=== PATIENT | female | born 1995 | race Caucasian/White ===

== ENCOUNTER 2020-04-01 19:09 | Emergency (ER) | payer BC, SELFPAY ==
--- NOTE | 2020-04-01 19:25 | HMH.EDUTC ---
[facility] [place] Clinical Impression: Viral syndrome Disposition: Home, Self-Care Condition on Discharge: Good Instructions: Preventing the Spread of Coronavirus Discharge Instructions Additional Instructions: Drink plenty of fluids. Take tylenol for pain or fever. Return if you begin to have difficulty breathing. Follow up with your regular doctor. GO TO THE ER FOR ANY WORSENING SYMPTOMS Referrals: PCP,No [Primary Care Provider] - Time of Disposition: 19:32 Medical Decision Making - Medical Records Medical records reviewed: No: I reviewed the patient's medical records. - Bijan Inquiry Pt receiving controlled substance: No Orders (Tests/Meds): ORDERS Category Date Time Status Covid-19 Nasal PCR Sendout P&C Stat Lab 04/01/20 19:14 Ordered [facility] [place] HPI - General Stated complaint: covid test,Sore throat,cough,weakness Time Seen by Provider: 04/01/20 19:27 - History of Present Illness Provider Complaint: She states that since last night she has had a cough, chest congestion, chills and body aches. Her currently has covid-19. - Related Data Home Medications Medication Instructions Recorded Confirmed No Known Home Medications 12/14/18 12/14/18 Allergies Allergy/AdvReac Type Severity Reaction Status Date / Time No Known Allergies Allergy Verified 12/14/18 16:04 [facility] History - Hepatitis A Screen Attestation statement:: This patient has been screened for Hepatitis A risk factors. I have reviewed the patient's past medical history: Yes Medical History: Denies:: Diabetes Mellitus Type 1, Diabetes Mellitus Type 2, Hypertension Other Surgeries: Yes: No Previous Surgery Amputation: No Fractures: No - Social History Smoking Status: Current every day smoker Tobacco Type: cigarettes Alcohol Intake: current Alcohol Intake Frequency:: holidays/special occasions only Substance Use Type: denies use Occupational Status: employed Housing: house Household Members: family Family Hx:: Cancer ROS Obtained: Yes All systems reviewed & no additional complaints - Constitutional Constitutional: Reports system reviewed and no additional complaints, except as docu - Eyes Eyes: Reports system reviewed and no additional complaints, except as docu - ENT Ears, Nose, Mouth, and Throat: Reports system reviewed and no additional complaints, except as docu - Cardiovascular Cardiovascular: Reports system reviewed and no additional complaints, except as docu - Respiratory Respiratory: Yes system reviewed and no additional complaints, except as docu - Gastrointestinal Gastrointestingal: Reports: system reviewed and no additional complaints, except as docu Physical Exam - General General appearance: alert, in no apparent distress - Head Head exam: atraumatic, normocephalic, normal inspection - Eye Eye exam: Present: normal appearance, PERRL, EOMI - ENT ENT exam: Present: mucous membranes moist, normal external ear exam - Expanded ENT Exam TM/Canal exam: Bilateral TM: erythema Mouth exam: Present: normal external inspection Teeth exam: Present: normal inspection Throat exam: Present: tonsillar erythema. Absent: tonsillomegaly, tonsillar exudate, R peritonsillar mass, L peritonsillar mass - Neck Neck exam: Present: normal inspection, full ROM, trachea midline. Absent: meningismus, lymphadenopathy - Chest Chest inspection: Present: normal inspection, symmetric chest wall rise. Absent: tenderness - Respiratory Respiratory exam: Present: normal lung sounds bilaterally. Absent: respiratory distress - Cardiovascular Cardiovascular exam: Present: regular rate, normal rhythm. Absent: JVD - Abdominal Exam Abdominal exam: Present: soft, normal bowel sounds. Absent: distention, tenderness, guarding - Extremities Exam Extremities exam: Present: normal inspection, full ROM, normal capillary refill. Absent: calf tenderness - Back Exam Back exam: Presen
[2020-04-01 19:26] VITALS: BP 116/90; PULSE 75; RESP 18; TEMP 36.7; O2SAT 98; BMI 33.6
[2020-04-01 19:45] VITALS: BP 116/90; PULSE 75; RESP 18; TEMP 36.7; O2SAT 98
--- NOTE | 2020-04-02 09:57 | PC.NURSE ---
ATTEMPTED TO CALL PATIENT TO NOTIFY OF POSITIVE COVID TEST WITH NO ANSWER. WILL ATTEMPT TO CALL BACK
--- NOTE | 2020-04-02 09:59 | PC.NURSE ---
ATTEMPTED TO CALL PT ABOUT COVID RESULTS. NO ANSWER AT THIS TIME. WILL TRY AGAIN LATER
--- NOTE | 2020-04-02 13:41 | PC.NURSE ---
ATTEMPTED AGAIN TO CALL PATIENT TO NOTIFY OF POSITIVE COVID TEST. PATIENT DID NOT ANSWER PHONE. WILL ATTEMPT TO CALL AGAIN LATER.
--- NOTE | 2020-04-02 13:57 | PC.NURSE ---
PT NOTIFIED OF POSITIVE COVID RESULT
== END 2020-04-01 19:46 | disposition home or self-care (01) ==
PROVIDERS: Emergency Provider Nurse Practitioner Family
DX: U07.1 COVID-19 (principal); B34.9 Viral infection, unspecified; F17.210 Nicotine dependence, cigarettes, uncomplicated
CPT/HCPCS: 99201; U0003

== ENCOUNTER 2021-06-26 10:02 | Emergency (ER) | payer BC, SELFPAY ==
[2021-06-26 11:00] VITALS: BP 113/67; PULSE 88; RESP 18; TEMP 37.4; O2SAT 97; BMI 30.9
[2021-06-26 11:15] LABS: UTC Strep Screen (Rapid) Positive (Negative)
--- NOTE | 2021-06-26 11:43 | HMH.EDUTC ---
[facility] [place] Clinical Impression: Strep throat Disposition: Home, Self-Care Condition on Discharge: Good Instructions: DI for Strep Throat, Strep Throat Additional Instructions: *Monitor Temp, Over the counter Motrin or Tylenol as directed/as needed Tylenol every 4 hours and Motrin every 6 hours (as long as your family doctor has told you that you can take it) for fever or pain. and straight to ER if unable to lower temp less than 101.0 after medication given *Warm salt water gargles may help to soothe the throat *Throat Lozenges *Warm fluids like tea with honey may help to soothe the throat *Sleep elevated *Humidifier/Vaporizer *If you did not take Penicillin shot or was unable to, start taking antibiotic immediately and make sure that you take it for the FULL length of time although you should start to feel better in 24-48 hours *change toothbrush and toothpaste 24-48 hours after starting to take antibiotics so you do not reinfect yourself Monitor Temp. Tylenol and/or Ibuprofen as needed. ER if fever is no less than 101 despite alternating Tylenol and Ibuprofen * Encourage fluids, water, Gatorade, powerade, pedialyte if infant/toddler/or child *Cold fluids, popsicles and ice cream may feel good on his throat Follow up IMMEDIATELY for new or worsening symptoms or no Noticeable improvement over the next 48-72 hours. 911 for difficulty breathing or swallowing Prescriptions: methylPREDNISolone [Medrol 4mg tab] 4 mg PO DIRECTED #21 tab Transmission Status: Pending to [facility] Penicillin V Potassium 500 mg PO BID 10 Days #20 tab Transmission Status: P[facility] to [facility] Referrals: Gissel Travis [Primary Care Provider] - As needed Forms: Work/School Release Time of Disposition: 11:49 Medical Decision Making - Bijan Inquiry Pt receiving controlled substance: No Bijan was queried for this patient: No Vital Signs: 06/26/21 11:00 Temperature 99.3 F Temperature Source Oral Pulse Rate [Right Brachial] 88 Respiratory Rate 18 Blood Pressure [Right Arm] 113/67 Blood Pressure Mean [Right Arm] 82 Blood Pressure Source [Right Arm] Automatic Cuff Blood Pressure Position [Right Arm] Sitting 02 Sat by Pulse Oximetry 97 Oxygen Delivery Method Room Air - Lab Data Lab results reviewed: Yes: I reviewed the patient's lab results. Lab Results 06/26/21 11:10: Strep Scn Rapid Clinic Positive A [facility] [place] - General Stated complaint: sore throat, fever Time Seen by Provider: 06/26/21 11:43 Mode of Arrival: Ambulatory Source of Information: Patient Limitations: No Limitations Description of Symptoms (Recalled from Triage Doc. by RN): PATIENT C/O SORE THROAT AND FEVER THAT STARTED YESTERDAY HEENT Symptoms (Recalled from RN notes): Yes Resp Symptoms (Recalled from RN notes): No Skin Symptoms (Recalled from RN notes): No MS Symptoms (Recalled from RN notes): No Functional Status (Recalled from RN notes): WNL - History of Present Illness Provider Complaint: Patient states that she has been having fever and sore throat since yesterday States that she noticed she was having white patchy stuff on her throat like she gets when she has strep throat so she came in - Related Data Previous Rx's Medication Instructions Recorded Penicillin V Potassium 500 mg PO BID 10 Days #20 tab 06/26/21 methylPREDNISolone [Medrol 4mg 4 mg PO DIRECTED #21 tab 06/26/21 tab] Allergies Allergy/AdvReac Type Severity Reaction Status Date / Time No Known Allergies Allergy Verified 12/14/18 16:04 - Worker's Comp Is this a Worker's Comp case?: No [facility] History - Hepatitis A Screen Drug use history?: No High risk sexual behaviors?: No History of sexually transmitted infection?: No Currently employed?: No Childcare worker?: No Do you have indoor plumbing?: Yes Do you have electricity?: Yes Attestation statement:: This patient has been screened for Hepatitis A risk factors. I have
[2021-06-26 11:55] VITALS: BP 113/67; PULSE 88; RESP 18; TEMP 37.4; O2SAT 97
== END 2021-06-26 12:01 | disposition home or self-care (01) ==
PROVIDERS: Emergency Provider Nurse Practitioner; PCP Family Medicine
DX: J02.0 Streptococcal pharyngitis (principal)
CPT/HCPCS: 87880; 99212; G0463

== ENCOUNTER 2021-08-09 09:11 | Emergency (ER) | payer BC, SELFPAY ==
[2021-08-09 09:47] VITALS: BP 189/89; PULSE 98; RESP 20; TEMP 37.2; O2SAT 98; BMI 31.8
[2021-08-09 10:08] LABS: Strep Scrn Group A (Rapid) Positive (Negative)
--- NOTE | 2021-08-09 10:28 | HMH.EDUTC ---
[facility] [place] Disposition Clinical Impression: Strep throat Disposition: Home, Self-Care Condition on Discharge: Good Instructions: Strep Throat, DI for Strep Throat Additional Instructions: Drink plenty of fluids. Take tylenol or ibuprofen for pain or fever. Take the medications as directed. Follow up with your regular doctor. GO TO THE ER FOR ANY WORSENING SYMPTOMS Don't start the oral steroids until tomorrow, since you had the shot here today. Prescriptions: Ondansetron [Zofran 4mg ODT] 4 mg PO Q8HP PRN #9 tab PRN Reason: Nausea Transmission Status: Received by [facility] Amoxicillin/Potassium Clav [Amox-Clav 875-125 mg Tablet] 1 tab PO BID #20 tab Transmission Status: Received by [facility] methylPREDNISolone [Medrol] 4 mg PO DIRECTED 6 Days #21 packet Transmission Status: Received by [facility] Referrals: Gissel Travis [Primary Care Provider] - Forms: Work/School Release Time of Disposition: 10:52 Medical Decision Making - Medical Records Medical records reviewed: No: I reviewed the patient's medical records. - Bijan Inquiry Pt receiving controlled substance: No Vital Signs: 08/09/21 09:47 08/09/21 10:54 Temperature 98.9 F 98.9 F Temperature Source Oral Pulse Rate 98 H Pulse Rate [Left] 98 H Respiratory Rate 20 20 Blood Pressure 189/89 H Blood Pressure [Right Arm] 189/89 H Blood Pressure Mean [Right Arm] 122 02 Sat by Pulse Oximetry 98 - Lab Data Lab results reviewed: Yes: I reviewed the patient's lab results. Lab Results 08/09/21 09:51: Group A Strep Rapid Positive A Orders (Tests/Meds): ED MEDICATIONS Discontinued Medications Generic Name Dose Route Start Last Admin Trade Name Freq PRN Reason Stop Dose Admin Ceftriaxone Sodium 1 gm 08/09/21 10:33 08/09/21 10:45 Ceftriaxone 1gm Vial IM 08/09/21 10:34 1 gm ONCE ONE Administration Lidocaine HCl 0 ml 08/09/21 10:33 08/09/21 10:45 Lidocaine 1% 5ml Pf Vial IM 08/09/21 10:34 2 ml ONCE ONE Administration Methylprednisolone Sodium Succinate 125 mg 08/09/21 10:33 08/09/21 10:45 Methylprednisolone Sod Succ 125mg Vial IM 08/09/21 10:34 125 mg ONCE ONE Administration [facility] [place] HPI - General Stated complaint: sore throat,cough,body aches Time Seen by Provider: 08/09/21 10:28 Mode of Arrival: Ambulatory Source of Information: Patient Limitations: No Limitations Description of Symptoms (Recalled from Triage Doc. by RN): pt c/o a sore throat and congestion x2 days. pt also states she thinks she may be . HEENT Symptoms (Recalled from RN notes): Yes Resp Symptoms (Recalled from RN notes): No Skin Symptoms (Recalled from RN notes): No MS Symptoms (Recalled from RN notes): No Functional Status (Recalled from RN notes): wnl - History of Present Illness Provider Complaint: She states that she has had a sore throat for the past 2 days. She has been trying to get , but her period is not late and she does not think she is at this time. - Related Data Previous Rx's Medication Instructions Recorded Penicillin V Potassium 500 mg PO BID 10 Days #20 tab 06/26/21 methylPREDNISolone [Medrol 4mg 4 mg PO DIRECTED #21 tab 06/26/21 tab] Amoxicillin/Potassium Clav 1 tab PO BID #20 tab 08/09/21 [Amox-Clav 875-125 mg Tablet] Ondansetron [Zofran 4mg ODT] 4 mg PO Q8HP PRN #9 tab 08/09/21 methylPREDNISolone [Medrol] 4 mg PO DIRECTED 6 Days #21 08/09/21 packet Allergies Allergy/AdvReac Type Severity Reaction Status Date / Time No Known Allergies Allergy Verified 12/14/18 16:04 - Worker's Comp Is this a Worker's Comp case?: No [facility] History - Hepatitis A Screen Drug use history?: No High risk sexual behaviors?: No History of sexually transmitted infection?: No Currently employed?: No Childcare worker?: No Do you have indoor plumbing?: Yes Do you have electricity?: Yes Attestation sta
[2021-08-09 10:54] VITALS: BP 189/89; PULSE 98; RESP 20; TEMP 37.2
== END 2021-08-09 10:57 | disposition home or self-care (01) ==
PROVIDERS: Emergency Provider Nurse Practitioner Family; PCP Family Medicine
DX: J02.0 Streptococcal pharyngitis (principal)
CPT/HCPCS: 87430; 96372; 99212; G0463; J0696

== ENCOUNTER 2022-02-09 10:08 | Outpatient (CLI) | payer BC, SELFPAY ==
[2022-02-09 10:38] VITALS: BP 115/72; PULSE 108; RESP 17; TEMP 36.6; O2SAT 98; BMI 36.1
[2022-02-09 11:13] VITALS: BMI 36.1
[2022-02-09 11:20] LABS: Coronavirus 19, PCR Not Detected (NotDetected); Influenza A, PCR Not Detected (NotDetected); Influenza B, PCR Not Detected (NotDetected)
[2022-02-09 11:24] LABS: Basophils % 0.2 % (0.1-2.0); Eosinophils % 0.1 % (0.1-12.0); Hemoglobin 12.8 g/dL (12.2-16.2); Lymphocytes # 0.6 K/mm3 (0.7-4.5); Lymphocytes % 4.3 % (10-50); Mean Corpuscular Hemoglobin 29.5 pg (27.0-31.2); Mean Corpuscular Volume 92.2 fl (81-99); Mean Platelet Volume 8.3 fl (7.4-10.4); Monocytes # 0.4 K/mm3 (0.1-1.0); Monocytes % 2.5 % (1.7-9.3); Neutrophils # 13.7 K/mm3 (1.8-7.8); Platelet Count 325 K/mm3 (142-424); Red Blood Count 4.34 M/mm3 (4.20-5.40); Red Cell Distribution Width 13.8 % (11.5-17.5); White Blood Count 14.7 K/mm3 (4.8-10.8)
[2022-02-09 11:26] LABS: MANUAL DIFFERENTIAL MANUAL DIFFERENTIAL (MANUAL DIFF)
[2022-02-09 11:33] LABS: Chloride 103 mmol/L (98-107)
[2022-02-09 11:34] LABS: Potassium 3.9 mmoL/L (3.5-5.1); Sodium 137 mmol/L (136-145)
[2022-02-09 11:36] LABS: Alanine Aminotransferase 18 U/L (12-78); Albumin/Globulin Ratio 1.4 (1.1-1.8); Alkaline Phosphatase 130 U/L (38-126); Anion Gap 14.9 mEq/L (5-15); Aspartate Amino Transferase 24 U/L (14-36); Bilirubin,Total 0.5 mg/dl (0.2-1.3); Blood Urea Nitrogen 8 mg/dl (7-17); Carbon Dioxide 23 mmol/L (22.0-30.0); Creatinine Clearance Estimated 247 mL/min (50-200); Estimated Glomerular Filt Rate 148 ml/min (>60); GFR (African American) 179 ML/MIN (>60); Globulin 2.9 g/dL (1.3-3.2); Total Protein,Serum 6.9 g/dl (6.3-8.2)
[2022-02-09 11:37] LABS: Calcium 8.7 mg/dl (8.4-10.2); Glucose 88 mg/dl (74-100)
[2022-02-09 11:54] LABS: Lymphocytes % 6 % (10-50); Monocytes % 2 % (2-9); Neutrophils % 92 % (42-76); Platelet Estimate Normal; RBC Morphology Normal; Total Cells Counted 100
--- NOTE | 2022-02-09 14:19 | P.PN_ITS ---
Subjective *Date: 02/09/22 *Time: 14:19 Interval history: She is a 26-year-old 2 para 1 at 32 weeks gestational age. She began having nausea vomiting in the middle of the night as well as diarrhea. She also complains of some back pain. She has a previous delivery with rupture of membranes. There were no contractions on the monitor. No one else at home is sick. She says that everybody ate the same food last night. Nobody else got sick from the food. Medical Exam Vital signs and Labs for Last 24 Hours: Vital Signs Temp Pulse Resp BP Pulse Ox 02/09/22 10:38 98 F 108 H 17 115/72 98 Intake and Output 02/09/22 02/09/22 02/09/22 03:59 11:59 19:59 Other: Weight 204 lb Laboratory Results - last 24 hr 02/09/22 11:00: WBC 14.7 H, RBC 4.34, Hgb 12.8, Hct 40.0, MCV 92.2, MCH 29.5, MCHC 32.0, RDW 13.8, Plt Count 325, MPV 8.3, Neut % (Auto) 93.0 H, Lymph % (Auto) 4.3 L, [place] % (Auto) 2.5, Eos % (Auto) 0.1, Baso % (Auto) 0.2, Neut # (Auto) 13.7 H, Lymph # (Auto) 0.6 L, [place] # (Auto) 0.4, Eos # (Auto) 0.0, Baso # (Auto) 0.0, Total Counted 100, Neutrophils % (Manual) 92 H, Lymphocytes % (Manual) 6 L, Monocytes % (Manual) 2, Platelet Estimate Normal, RBC Morphology Normal 02/09/22 11:00: Sodium 137, Potassium 3.9, Chloride 103, Carbon Dioxide 23, Anion Gap 14.9, BUN 8, Creatinine 0.50 L, Estimated Creat Clear 247, Estimated GFR 148, Est GFR ( Amer) 179, Glucose 88, Calcium 8.7, Total Bilirubin 0.5, AST 24, ALT 18, Alkaline Phosphatase 130 H, Total Protein 6.9, Albumin 4.0, Globulin 2.9, Albumin/Globulin Ratio 1.4 02/09/22 11:13: SARS-CoV-2 (PCR) Not detected, Influenza A Untype (PCR) Not detected, Influenza Type B (PCR) Not detected I & O for Labs for Last 24 Hours: Intake & Output 02/07/22 02/08/22 02/09/22 02/10/22 11:59 11:59 11:59 11:59 Weight 204 lb Head: Present atraumatic ENT: Present normal exam Neck: Present normal inspection Respiratory: Present normal respiratory effort GI: Present soft; Absent distention or tenderness Rectal (female): Present deferred (female): Present deferred Assessment and Plan *Assessment and plan (1) Nausea and vomiting during : Status: Acute Category: Medical Code(s): O21.9 - Vomiting of , unspecified Plan She received IV fluids as well as Zofran. She is feeling much better. She has had no further episodes of nausea or vomiting. She is discharged home. She will follow-up with her doctor next week as planned. COVID testing and flu testing was negative. Her CBC was normal.
== END 2022-02-09 12:32 | disposition home or self-care (01) ==
LOC: OBOUT 10:10 → OB 10:11
PROVIDERS: Visit Provider Nurse Practitioner Obstetrics & Gynecology
DX: O21.9 Vomiting of pregnancy, unspecified (principal); Z3A.29 29 weeks gestation of pregnancy; E86.0 Dehydration
CPT/HCPCS: 59025; 80053; 85007; 85025; 96365; 96367; C9803; G0463; J2405; U0003; U0005

== ENCOUNTER 2023-10-17 07:01 | Emergency (ER) | payer BC, SELFPAY ==
[2023-10-17] VITALS (8 sets, daily range): BP systolic 118–142; BP diastolic 69–91; PULSE 72–112; RESP 18–20; TEMP 37.2–37.7; O2SAT 97–100; BMI 36.3
[2023-10-17] MEDS: ACETAMINOPHEN 1,000MG/100ML VIAL 1000 MG IV (07:15)
[2023-10-17] MEDS: ONDANSETRON 4MG/2ML VIAL 4 MG IV (07:15)
[2023-10-17] MEDS: LACTATED RINGERS 1000ML 1,000 ML 999 ML IV ×2 (07:15→08:54)
--- NOTE | 2023-10-17 07:20 | ED_ITS ---
Discharge Plan Disposition Patient Disposition: Home, Self-Care Chief Complaint: Nausea/Vomiting/Diarrhea Prescriptions Prescriptions: No Action methylprednisolone 4 MG tablet 4 mg PO DIRECTED Qty: 21 0RF Rx Instructions: Take as directed on package instructions penicillin V potassium 500 MG tablet 500 mg PO BID 10 Days Qty: 20 0RF methylprednisolone 4 MG tablets,dose pack 4 mg PO DIRECTED 6 Days Qty: 21 0RF ondansetron 4 MG tablet,disintegrating 4 mg PO Q8HP PRN (Reason: Nausea) Qty: 9 0RF amoxicillin-pot clavulanate 1 EACH tablet 1 tab PO BID Qty: 20 0RF Referrals Follow up/Referrals: Wyatt Maher MD [Primary Care Provider] - See instructions Activity Restrictions/Add. Instructions Additional Instructions/Restrictions: Call your family doctor to establish care for this visit to the emergency department and schedule follow-up within 48 hours to ensure improvement. If you have any worsening of your condition or any other concerning signs or symptoms, return to the emergency department or your primary care doctor for further evaluation. Return to the emergency department if you have excessively foamy urine, dark urine, swelling in your hands or feet or face, or inability to urinate. Clinical Impressions Clinical Impression: Campylobacter enteritis, Hematuria, Proteinuria Instructions Patient Instructions: DI for Diarrhea and Traveler's Diarrhea -- Adult, DI for Diarrhea and Traveler's Diarrhea -- Child, DI for Nausea -- Adult, DI for Nausea -- Child Discharge ED Provider: Raudel Jacobs General Adult HPI General Chief complaint: Nausea/Vomiting/Diarrhea Stated complaint: diarrhea, cramping, abd pain Time Seen by Provider: 10/17/23 07:09 Mode of Arrival: Ambulatory Source of Information: Patient Limitations: No Limitations Description of Symptoms (Recalled from ER Triage Doc. by RN): Patient reports having abdominal cramping and pain that started Tuesday, with severe diarrhea starting Tuesday and continuing today. Patient states that her is currently hospitalized at [facility] with plesiomonas suigelloid and camphlyobacter. They had [place] before symptoms started but had not been exposed to [place] or [place] at time of symptom start. Patient reports nausea and fevers with cramping pain 8/10 intermittently. Patient denies blood in stool. She also reports that she had 1 episode of syncope after having a bowel movement during the night. History of Present Illness HPI narrative: Please note that above description of symptoms, in this electronic medical record under categorization of recalled from ER triage doctor by RN are reflective of an initial nursing assessment, however, is not reflective of my full history and physical exam that was personally taken and clarified. Consequentially, this preceding description of symptoms, which may include the patient's categorized chief complaint in the EMR, do not reflect my personal clinical impression, and the ultimate description of history of present illness and patient stated complaints should be deferred to this section of the note. Unless stated otherwise or congruent with this section of the note, additional signs, symptoms, or incongruence should be interpreted as inaccurate with my clinical impression. Related Data Previous Rx's Medication Instructions Recorded methylprednisolone 4 mg tablet 4 mg PO DIRECTED #21 tabs 06/26/21 penicillin V potassium 500 mg 500 mg PO BID 10 days #20 tabs 06/26/21 tablet amoxicillin 875 mg-potassium 1 tab PO BID #20 tabs 08/09/21 clavulanate 125 mg tablet methylprednisolone 4 mg tablets in 4 mg PO DIRECTED 6 days #21 08/09/21 a dose pack packets ondansetron 4 mg disintegrating 4 mg PO Q8HP PRN Nausea #9 tabs 08/09/21 tablet Allergies Allergy/AdvReac Type Severity Reaction Status Date / Time No Known Allergies Allergy Verified 12/14/18 16:04 [facility] Disclaimer: The information contained in this section may have been updated after the patient was seen, as this information can be updated by other users. Social History Smoking Status: Never smoker alcohol intake: never substance use type: denies use current occupational status: employed Travel in the last 8 weeks: None household members: family housing: house ROS Obtained: Yes All systems reviewed & no additional complaints except as documented Physical Exam General General appearance: alert and in no apparent distress Head Head exam: atraumatic and normocephalic Eye Eye exam: Present normal appearance, PERRL and EOMI ENT ENT exam: Present mucous membranes moist Neck Neck exam: Present normal inspection, full ROM and trachea midline Respiratory Respiratory exam: Absent respiratory distress, wheezes, stridor, accessory muscle use or prolonged expiratory phase Cardiovascular Cardiovascular exam: Present normal rhythm Abdominal Exam Abdominal exam: Present soft; Absent distention, tenderness, guarding, rebound or rigidity Extremities Exam Extremities exam: Absent edema Neurological Exam Neurological exam: Present alert, oriented X3, CN II-XII intact and normal gait; Absent motor sensory deficit Skin Skin exam: Present warm and dry; Absent diaphoresis or erythema Medical Decision Making Medical Records Medical records reviewed: Yes I reviewed the patient's medical records. Bijan Inquiry Pt receiving controlled substance: No Bijan was queried for this patient: No Vital Signs: 10/17/23 07:02 10/17/23 07:10 10/17/23 07:43 Temperature 99.8 F H Temperature Source Oral Pulse Rate 109 H 88 Pulse Rate [Left Radial] 112 H Respiratory Rate 18 Blood Pressure 138/91 H 142/69 H Blood Pressure [Right Arm] 138/91 H Blood Pressure Mean 95 Blood Pressure Mean [Right Arm] 106 Blood Pressure Source [Right Arm] Automatic Cuff Blood Pressure Position [Right Arm] Sitting 02 Sat by Pulse Oximetry 97 98 97 Oxygen Delivery Method Room Air Lab Data Lab Results 10/17/23 07:12: WBC 11.5 H, RBC 4.40, Hgb 13.5, Hct 39.0, MCV 88.7, MCH 30.7, MCHC 34.6, RDW 13.7, Plt Count 268, MPV 7.8, Neut % (Auto) 74.9, Lymph % (Auto) 17.9, [place] % (Auto) 6.6, Eos % (Auto) 0.1, Baso % (Auto) 0.5, Neut # (Auto) 8.6 H, Lymph # (Auto) 2.1, [place] # (Auto) 0.8, Eos # (Auto) 0.0, Baso # (Auto) 0.1, Sodium 137, Potassium 3.1 L, Chloride 104, Carbon Dioxide 21 L, Anion Gap 15.1 H , BUN 6 L, Creatinine 0.90, Estimated Creat Clear 135, Estimated GFR 74, Est GFR ( Amer) 90, Glucose 100, Lactate 1.0, Calcium 8.8, Total Bilirubin 0.5, AST 26, ALT 24, Alkaline Phosphatase 78, Total Protein 7.7, Albumin 4.1, G lobulin 3.6 H, Albumin/Globulin Ratio 1.1, HCG, Quant < 2 10/17/23 07:25: Stl Aeromonas (PCR) Not detected, Stl C. cayetanensis PCR Not detected, Stool Rotavirus (PCR) Not detected, Stl Adenov F 40/41 PCR Not detected, Stool Astrovirus (PCR) Not detected, Stool Campylobacter PCR Detected A, Stl C.difficile Tox PCR Not detected, Stool Cryptosporidium PCR Not detected, Stl E.coli Shiga Tox PCR Not detected, Stool E coli O157 PCR Not detected, Stl Enterotoxigenic E PCR Not detected, Stool EPEC (PCR) Not detected, Stool EAEC (PCR) Not detected, Stl E. histolytica PCR Not detected, Stool Giardia Lamblia PCR Not detected, Stool Salmonella PCR Not detected, Stool Sapovirus (PCR) Not detected, Stl P. shigelloides PCR Not detected, Stl Shigella/EIEC PCR Not detected, St Y.enterocolitica PCR Not detected, Stool Vibrio (PCR) Not detected, Stl Vibrio cholerae PCR Not detected, Stl Norovirus GI/GII PCR Not detected 10/17/23 09:18: Urine Color Dark yellow, Urine Appearance Sl cloudy, Urine pH 6.0, Ur Specific [place] 1.025, Urine Protein Trace, Urine Glucose (UA) Negative, Urine Ketones 3+, Urine Blood 3+, Urine Nitrate Negative, Urine Bilirubin 2+ A, Urine Urobilinogen 0.2, Ur Leukocyte Esterase Negative, Urine RBC None, Urine WBC Occasional, Ur Squamous Epith Cells 20-50, Urine Bacteria 1+ 10/17/23 07:12 10/17/23 07:12 Orders (Tests/Meds): ED MEDICATIONS Discontinued Medications Generic Name Dose Route Start Last Admin Trade Name Freq PRN Reason Stop Dose Admin Acetaminophen 1,000 mg 10/17/23 07:11 10/17/23 07:15 Acetaminophen 1,000mg/100ml Vial IV 10/17/23 07:12 1,000 mg ONCE ONE Administration Lactated Ringer's 1,000 mls @ 999 mls/hr 10/17/23 07:04 10/17/23 07:15 Lactated Ringer's 1000 Ml Bag IV 10/17/23 08:04 999 mls/hr .Q1H1M ONE Administration Lactated Ringer's 1,000 mls @ 999 mls/hr 10/17/23 07:11 10/17/23 08:54 Lactated Ringer's 1000 Ml Bag IV 10/17/23 08:11 999 mls/hr .Q1H1M ONE Administration Ketorolac Tromethamine 15 mg 10/17/23 08:51 10/17/23 09:01 Ketorolac 30mg/Ml Vial IV 10/17/23 08:52 15 mg ONCE ONE Administration Ondansetron HCl 4 mg 10/17/23 07:04 10/17/23 07:15 Ondansetron 4mg/2ml Vial IV 10/17/23 07:05 4 mg ONCE ONE Administration Potassium Chloride 60 meq 10/17/23 08:51 10/17/23 09:01 Potassium Chloride 20meq Tab PO 10/17/23 08:52 60 meq ONCE ONE Administration ORDERS Category Date Time Status CBC w/Auto Diff [Complete Blood Count Auto Diff] Stat Lab 10/17/23 07:12 Completed CMP [Comprehensive Metabolic Panel] Stat Lab 10/17/23 07:12 Completed Diarrhea 6-11 Panel, Cdiff PCR Stat Lab 10/17/23 07:25 Completed HCG,Quantitative Stat Lab 10/17/23 07:12 Completed Lactic Acid Stat Lab 10/17/23 07:12 Completed UA [Urinalysis and Microscopic] Stat Lab 10/17/23 09:18 Completed Ova + Parasite Exam Stat Micro 10/17/23 07:51 Ordered Medical Decision Narrative: Otherwise healthy 28-year-old female presenting with diarrhea, weakness, fatigue. Patient states that her has Shigella and Campylobacter and is currently hospitalized at [facility]. Patient started having symptoms 2 days prior to this. This was about 5 days after her started having symptoms. Nonbloody diarrhea, but she is having diarrhea at this point that is too numerous to count. Watery, associated with dehydration and nausea. Patient states that after she had a bowel movement yesterday, 10/15, she had generalized feeling of weakness, laid on the floor, passed out, and woke up a few minutes later. Abdomen is crampy, diffuse pain that does not radiate. She is also having intermittent bilateral flank pains. No hematuria, dysuria, Coca- [employer]a colored urine. Also having tactile fevers without objective measurement. Patient states that she recently traveled to [place] and does have freshwater exposures. History was obtained via conversation with patient. On arrival, patient hemodynamically stable, alert, oriented x4, appropriate, GCS 15, moving all extremities spontaneously, pupils equal and reactive to light. Full physical exam performed and significant for well-appearing female who is in no acute distress, but she is tachycardic. Abdomen is soft, nontender. Patient does have bilateral flank tenderness. Normotensive, afebrile, saturating appropriately on room air. Differential includes bacterial diarrhea, toxin induced diarrhea, viral diarrhea, parasite induced diarrhea, HUS, dehydration, TYLER, , among others Patient was placed in observation beginning at 7:30 AM in order to give meds, reassess and determine need for admission versus home-going. The patient was provided labs, fluids, medications while awaiting results. Patient was given fluids and acetaminophen, Zofran for symptomatic management and correction of underlying abnormalities. Workup independently interpreted and significant for mild leukocytosis, nonactionable overall. Patient's potassium was low at 3.1, this was repleted with p.o. 60 mill equivalent. Kidney function normal, notably. Patient is hCG negative. Urinalysis with ketones, blood, trace protein. stool positive for Campylobacter. on reevaluation, patient states she is feeling much better. Was not able to provide a stool sample for ova and parasite, this was sent. Patient also given 60 mg of p.o. potassium. At this time, I feel patient is appropriate for discharge. Total observation time 3 hours. Because patient at baseline without signs or symptoms of clinical decompensation, deemed appropriate for discharge. Because patient kidney function normal, close return precautions were given and patient voiced her understanding. Results were relayed to patient who voiced understanding and were agreeable to outpatient management and follow up. I discussed my clinical impression with patient and answered all questions. At this time, the evidence for any other entities in the differential is insufficient to warrant any further testing or ED observation. This was explained as well. Advisory was given that persistent or worsening symptoms require further evaluation. I confirmed the understanding of this discussion. Associate Buyer disclaimer Much of this encounter note is an electronic offset pressman spoken language to printed text. Electronic offset pressman of the spoken language may permit errors. Although I have reviewed the note, some errors may still exist. Critical Care Critical Care Time Critical Care Time: No
[2023-10-17 07:52] LABS: Adenovirus F 40/41, stool Not Detected (NotDetected); Astrovirus Not Detected (NotDetected); Clostridium Difficile A/B, PCR Not Detected (NotDetected); Cryptosporidium Not Detected (NotDetected); Cyclospora Cayetanesis Not Detected (NotDetected); Entamoeba histolytica Not Detected (NotDetected); Enteroaggregative E coli Not Detected (NotDetected); Enteropathogenic E coli Not Detected (NotDetected); Enterotoxigenic E coli Not Detected (NotDetected); Giardia lamblia Not Detected (NotDetected); Norovirus Not Detected (NotDetected); Plesimonas Shigalloides, PCR Not Detected (NotDetected); Rotavirus A Not Detected (NotDetected); Salmonella, PCR Not Detected (NotDetected); Sapovirus Not Detected (NotDetected); Shiga-like toxin E coli Not Detected (NotDetected); Shigella Enterovasive E coli Not Detected (NotDetected); Vibrio Cholerae Not Detected (NotDetected); Vibrio, PCR Not Detected (NotDetected); Yersinia Entercolitica, PCR Not Detected (NotDetected)
[2023-10-17 08:05] LABS: Basophils # 0.1 K/mm3 (0-0.2); Basophils % 0.5 % (0.1-2.0); Eosinophils % 0.1 % (0.1-12.0); Hemoglobin 13.5 g/dL (12.2-16.2); Lymphocytes # 2.1 K/mm3 (0.7-4.5); Lymphocytes % 17.9 % (10-50); Mean Corpuscular HGB Conc 34.6 g/dL (31.8-35.4); Mean Corpuscular Hemoglobin 30.7 pg (27.0-31.2); Mean Corpuscular Volume 88.7 fl (81-99); Mean Platelet Volume 7.8 fl (7.4-10.4); Monocytes # 0.8 K/mm3 (0.1-1.0); Monocytes % 6.6 % (1.7-9.3); Neutrophils # 8.6 K/mm3 (1.8-7.8); Neutrophils % 74.9 % (37.0-80.0); Platelet Count 268 K/mm3 (142-424); Red Cell Distribution Width 13.7 % (11.5-17.5); White Blood Count 11.5 K/mm3 (4.8-10.8)
[2023-10-17 08:06] LABS: Chloride 104 mmol/L (98-107); Potassium 3.1 mmoL/L (3.5-5.1); Sodium 137 mmol/L (136-145)
[2023-10-17 08:08] LABS: Blood Urea Nitrogen 6 mg/dl (7-17); Creatinine Clearance Estimated 135 mL/min (50-200); Estimated Glomerular Filt Rate 74 ml/min (>60); GFR (African American) 90 ML/MIN (>60)
[2023-10-17 08:09] LABS: Alanine Aminotransferase 24 U/L (12-78); Albumin Level 4.1 g/dl (3.5-5.0); Albumin/Globulin Ratio 1.1 (1.1-1.8); Alkaline Phosphatase 78 U/L (38-126); Anion Gap 15.1 mEq/L (5-15); Aspartate Amino Transferase 26 U/L (14-36); Bilirubin,Total 0.5 mg/dl (0.2-1.3); Calcium 8.8 mg/dl (8.4-10.2); Carbon Dioxide 21 mmol/L (22.0-30.0); Globulin 3.6 g/dL (1.3-3.2); Glucose 100 mg/dl (74-100); Total Protein,Serum 7.7 g/dl (6.3-8.2)
--- NOTE | 2023-10-17 08:12 | PC.NURSE ---
I rounded on the pt and took her a warm blanket. no new complaints at this time. vss. pt denies any new needs.
[2023-10-17 08:41] LABS: HCG,Quantitative < 2 mIU/ml (0-5.42)
[2023-10-17] MEDS: POTASSIUM CHLORIDE 20MEQ TAB 60 MEQ PO (09:01)
[2023-10-17] MEDS: KETOROLAC 30MG/ML VIAL 15 MG IV (09:01)
[2023-10-17 09:21] LABS: Microscopic, Urine URINE MICROSCOPIC (MICROSCOPIC)
[2023-10-17 09:27] LABS: Appearance,Urine SL CLOUDY (Clear); Blood, Urine 3+ (Negative); Color,Urine DARK YELLOW (Yellow); Glucose,Urine (UA) Negative (Negative); Ketones,Urine 3+ (Negative); Leukocyte Esterase,Urine Negative (Negative); Nitrate,Urine Negative (Negative); Protein,Urine TRACE (Negative); Specific Gravity, Urine 1.025 (1.005-1.030); Urobilinogen,Urine 0.2 EU/dl (0.2)
[2023-10-17 09:48] LABS: Bilirubin,Urine 2+ (Negative)
[2023-10-17 10:17] LABS: WBC,Urine Occasional #/hpf (0-3)
[2023-10-17 10:19] LABS: Bacteria,Urine 1+ /lpf; Squamous Epithelial Cell,Urine 20-50 #/hpf (0-5)
[2023-10-17 10:21] LABS: Campylobacter Detected (NotDetected)
--- NOTE | 2023-10-17 10:21 | PC.NURSE ---
Raudel Parsons aware of stool sample results
== END 2023-10-17 10:47 | disposition home or self-care (01) ==
PROVIDERS: Emergency Provider Emergency Medicine; PCP Family Medicine
DX: A04.5 Campylobacter enteritis (principal); E87.6 Hypokalemia; R31.9 Hematuria, unspecified; R80.9 Proteinuria, unspecified; M54.59 Other low back pain; R10.819 Abdominal tenderness, unspecified site; R19.7 Diarrhea, unspecified; R11.0 Nausea
CPT/HCPCS: 80053; 81001; 83605; 84702; 85025; 87506; 96361; 96374; 96375; 99284; J0131; J1885; J2405; J7120

== ENCOUNTER 2025-03-19 15:56 | Outpatient (RCR) | payer BC, SELFPAY ==
--- NOTE | 2025-03-19 16:44 | HMH.PTOPEV ---
PT Evaluation Rehab PT Outpatient Evaluation Start: 03/19/25 15:58 Freq: Status: Active Protocol: Document 03/19/25 15:58 JUDY (Rec: 03/19/25 16:44 JUDY [id number]) E-signed By Edenilson Patel, PT Outpatient Therapy Subjective History Subjective History Pt is a 30 yof who is referred to [facility] outpatient PT with complaints of LBP. Pt reports that her pain began approximately 3 years ago after the vaginal delivery of her second child. Pt reports, it just feels like my hips have been out of place since then. Pt reports that her pain is isolated into the lower portion of her lower back, into her tailbone and sometimes into both of her hips. Pt reports that her R hip typically has more pain than her L hip. 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 The pt reports that this is something that flares her symptoms up. Pt also reports difficulty squatting, such as to bath her children. Pt also reports difficulty lifting heavier items. Pt denies any significant PMH. 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 Chief Complaint Pain,Weakness Symptom Type Ache Symptoms Relieved By Heat Symptoms Aggravated Standing,Walking,Lifting By Prior Functional None Limitations Current Functional Lifting,Standing,Squatting,Walking,Stairs Limitations Symptom Description Intermittent,Activity Dependent Level of pain today 4 (0-10) Pain scale - at its 0 best (0-10) Pain scale - at its 6 worst (0-10) Lumbopelvic Eval Posture Thoracic Spine Neutral Posture Standing Position Lumbar Spine Posture Neutral Standing Position Palapation tenderness bilateral lumbar spinal Yes: hypomobility at L3-L5 TTP 3/4 tenderness Lumbar/Sacral Tenderness Palpation Findings Lumbar/Sacral TTP at S1 3/4 Palpation Overall Comment Accessory Movement T-spine Vertebrae Central P/A [place] Accessory Movements that Elicit Symptoms L3 bilateral L4 bilateral L5 bilateral S1 bilateral Range of Motion Lumbar Spine Active 100% Flexion Range of Motion (degrees) Lumbar Spine Active 100% Extension Range of Motion (degrees) Left Lumbar Spine 100% Lateral Flexion Active Range of Motion (degrees) Right Lumbar Spine 100% Lateral Flexion Active Range of Motion (degrees) Manual Muscle Test Bilateral Knee Extension 5 Normal Strength Grade Knee Flexion 5 Normal Strength Grade Hip Flexion Strength 5 Normal Grade Hip Abduction 4- Good- Strength Grade Hip Adduction 4- Good- Strength Grade Hip Extension 4- Good- Strength Grade Special Tests Forward Bending Test Negative Left,Negative Right - Standing Hip Scouring ( Positive Left,Positive Right Quadrant) Test Hip Cain (KOREY) Positive Left,Positive Right Test Sciatic Nerve Negative Left,Negative Right Tension Test Reverse Sciatic Negative Left,Negative Right Nerve Tension Test Unilateral Straight Negative Left,Negative Right Leg Raise (Lasegue) Test Sacroiliac Joint Positive Left,Positive Right Compression Test Sacroiliac Joint Positive Left,Positive Right Distraction Test Oswestry Index Section 1 Pain Intensity The pain comes and goes and is moderate Section 2 Personal Care ( change my way of washing or dressing in order to avoid Washing,[place]) pain Section 3 Lifting I can lift heavy weights, but it gives me extra pain Section 4 Walking I have some pain when walking but it does not increase with distance Section 5 Sitting Pain prevents me from sitting for more than one hour Section 6 Standing I cannot stand more than 1 hour without increasing pain Section 7 Sleeping Because of my pain, my normal night's sleep is less than 6 hours sleep Section 8 Social Life My social life is normal but increases the degree of pain Section 9 Traveling I get extra pain while traveling, but it does not compel me to seek al Section 10 Changing Degreee of My pain is gradually getting worse Pain Score and Risk Level Oswestry Score 17 Oswestry Risk Level Moderate Disability Miscellaneous Dx PT Eval Objective Objective Core MMT: 06/20 Outpatient Therapy Assessment Impairments Problems/ Palpation Tenderness,Impaired Strength,Impaired Walking Impairmments ,Impaired Lifting,Impaired Household Care,Impaired Squatting,Subjective C/O Pain,Impaired Self Care/Self Management Prognosis Rehab Potential Good Comment w HEP compliance Clinical Impression Consistent with Yes Diagnosis Consistent with SI Joint Instability Additional details: 08/20 + SI Instability test PT Patient Goals PT Patient Goals PT Short Term 3 weeks: Patient Goals 1. Patient will report a 48 hour average pain of 5/10 on the numeric pain rating scale to demonstrate improvement in quality of life and increased functional capacity. 2. Patient will improve b/l hip abductor, hip extensor and core strength upon manual muscle testing to 4/5 facilitate increased spinal stabilization and improved functional capabilities. 3. Patient will demonstrate a reduction in trigger point sensitivity to Grade 2 with manual palpation to improve comfort during activity and soft tissue mobility. 4. 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 5. Pt will demonstrate HEP compliance by completing prescribed HEP 4-5x/week. 6. Pt will improve MARISOL score to 13 to demonstrated improved functional mobility, overall improvement and improved quality of life. PT Group Home Patient 6 weeks: Goals 1. Patient will report a 48 hour average pain of 2-3/10 on the numeric pain rating scale to demonstrate improvement in quality of life and increased functional capacity. 2. Patient will improve b/l hip abductor, hip extensor and core strength upon manual muscle testing to 4+/5 facilitate increased spinal stabilization and improved functional capabilities. 3. Patient will demonstrate a reduction in trigger point sensitivity to Grade 0-1 with manual palpation to improve comfort during activity and soft tissue mobility. 4. Patient will demonstrate negative results on 3/5 SI joint pain provocation tests in order to demonstrate improved SI joint stabilization and decreased hypomobility. 5. Patient will be able to stand/walk for 1 hour at one time to demonstrate improved community ambulation for activities, such as grocery shopping and other activities. 6. Pt will be able to lift a 20# weight from floor with proper lifting mechanics and less than 2/10 pain to demonstrate the ability to lift items, such as grocery bags, milk jugs, laundry basket, etc. 7. Pt will improve MARISOL score to 9 to demonstrated improved functional mobility, overall improvement and improved quality of life. Outpatient Therapy Plan of Care Treatment Plan May Include Therapeutic Exercise Yes Including Home Exercise Program Manual Therapy Yes Techniques Neuromuscular Re- Yes education Therapeutic Yes Activities to Return to Previous Functional/Work Level Gait Training Yes Thermal Modalities Yes Electrical Yes Stimulation Massage Yes Manual Lymphatic Yes Drainage Eval/Re-Eval Yes Frequency Times per week 2 Duration Number of Weeks 6 Addendums This patient is a No candidate for social or vocational rehab ? Patient/Guardian Yes verbally acknowledges understanding of treatment program and consents to further treatment? Patient/Guardian Yes verbally acknowledges understanding of diagnosis, prognosis and goals for treatment? Eval Complexity PT Charges 47545 - Low Complexity Shoulder/Elbow Eval Shoulder Objective Measurements Elbow Objective Measurements PHYSICIAN CERTIFICATION: I certify the specified therapy services for Zuleika Burns are required, authorized, and reviewed every 30 days.
== END 2025-03-19 23:59 | disposition home or self-care (01) ==
LOC: PT 15:56
PROVIDERS: PCP Family Medicine; Visit Provider Physician Assistant
DX: M53.3 Sacrococcygeal disorders, not elsewhere classified (principal); R59.0 Localized enlarged lymph nodes
CPT/HCPCS: 97161